=== PATIENT | female | born 1990 | race Caucasian/White ===

== ENCOUNTER 2016-10-09 10:44 | Emergency (ER) | payer OTHER ==
[~2016-10-09] VITALS: Ht 170.2 cm; Wt 86.2 kg
[~2016-10-09 10:44] MED LIST: ALPRAZOLAM ER0.5 MG PO; AMITIZA24 MCG PO; CALCI PO; CHEWABLE MULTI1 EAC1 PO; FLUOXETINE HCL20 MG PO; GOLYTELY SOLU4000 ML PO; IBUPROFEN600 MG PO; IBUPROFEN800 MG PO; KEFLEX500 MG PO; NORCO 5-325 TA1 EACH PO; OMEPRAZOLE40 MG PO; PERCOCET 5-3251 EACH PO; ZOFRAN ODT8 MG PO
[2016-10-09] MEDS ORDERED: XANAX1 MG PO (10:58)
[2016-10-09] MEDS ORDERED: ATIVAN2 MG PO (10:58)
[2016-10-09] MEDS ORDERED: NORCO 5-325 TA1 EACH PO (12:59)
== END 2016-10-09 13:05 | disposition home or self-care (01) ==
LOC: ED 10:44
DX: O03.9 Complete or unspecified spontaneous abortion without complication (principal); O26.90 Pregnancy related conditions, unspecified, unspecified trimester; Z98.890 Other specified postprocedural states
CPT/HCPCS: 76801; 76817; 80048; 81001; 84702; 85025; 96374; 99284; J2405

== ENCOUNTER 2017-07-24 02:09 | Inpatient (IN) | payer OTHER ==
[~2017-07-24] VITALS: Ht 170.2 cm; Wt 108.0 kg
[~2017-07-24 02:09] MED LIST changes: +ATIVAN2 MG PO; +XANAX1 MG PO
[2017-07-24] MEDS ORDERED: PRENATAL VITAM1 EAC6 PO (06:14)
--- NOTE | 2017-07-26 09:16 | PR ---
[facility] [address] [facility] [place], [place] [address] Signed PP Progress Notes Datetime Report Generated by CPN: 07/26/2017 09:15 SUBJECTIVE: [id number] Pain: Within normal limits Nausea/Vomiting: Denies Flatus: Yes Vital Signs: [id number] Vital Signs: Reviewed; Within Normal Limits EXAM: [id number] Cardiovascular: Normal Respiratory: Normal Abdomen/Uterus: Normal Lochia: Normal Vulva/Perineum: Not Done Breasts: Not Done CVA Tenderness: Normal Extremities: Normal Incision: Not Applicable Progress: Normal Exam Comments: Fundus firm U-2 nontender IMPRESSION/PLAN/PROCEDURES: [id number] Impression: Normal progression Plan: Discharge Procedures: None Progress Notes: Doing well, without complaint. Ready to go home. Signing Physician: Radha Pavon MD Copies: ~ *Electronically Signed* 07/26/1715 RADHA PAVON MD PATIENT NAME: KODI REICH PROGRESS NOTE DATE OF : 88 PHYSICIAN: RADHA PAVON MD RPT #: [id number] REPORT IS CONFIDENTIAL AND NOT TO BE RELEASED WITHOUT AUTHORIZATION
== END 2017-07-26 11:00 | disposition home or self-care (01) | DRG 775 ==
LOC: FBCO 02:09 → FBC 08:05
PROVIDERS: ADMIT Obstetrics & Gynecology
PROC: 10E0XZZ Delivery of Products of Conception, External Approach (ICD-10-PCS; principal; 2017-07-24)
PROC: 0UQMXZZ Repair Vulva, External Approach (ICD-10-PCS; 2017-07-24)
PROC: 3E0P7VZ Introduction of Hormone into Female Reproductive, Via Natural or Artificial Opening (ICD-10-PCS; 2017-07-24)
PROC: 00HU33Z Insertion of Infusion Device into Spinal Canal, Percutaneous Approach (ICD-10-PCS; 2017-07-24)
PROC: 3E0R3BZ Introduction of Anesthetic Agent into Spinal Canal, Percutaneous Approach (ICD-10-PCS; 2017-07-24)
DX: O76 Abnormality in fetal heart rate and rhythm complicating labor and delivery (principal); O99.214 Obesity complicating childbirth; E66.9 Obesity, unspecified; O99.844 Bariatric surgery status complicating childbirth; O69.81X0 Labor and delivery complicated by cord around neck, without compression, not applicable or unspecified; O71.82 Other specified trauma to perineum and vulva; O99.344 Other mental disorders complicating childbirth; F41.9 Anxiety disorder, unspecified; Z79.899 Other long term (current) drug therapy; Z3A.37 37 weeks gestation of pregnancy; Z37.0 Single live birth
CPT/HCPCS: 01960; 36415; 59025; 85027; 99213; J2795; J7120

== ENCOUNTER 2020-01-25 10:07 | Emergency (ER) | payer OTHER ==
[~2020-01-25] VITALS: Ht 170.2 cm; Wt 81.6 kg
[~2020-01-25 10:07] MED LIST changes: +PRENATAL VITAM1 EAC6 PO
[2020-01-25] MEDS ORDERED: PANTOPRAZOLE SO40 MG PO (11:51)
[2020-01-25] MEDS ORDERED: ESCITALOPRAM OX20 MG PO (11:51)
[2020-01-25] MEDS ORDERED: BUPROPION XL150 MG PO (11:51)
[2020-01-25] MEDS ORDERED: PREGABALIN150 MG PO (11:51)
== END 2020-01-25 14:25 | disposition home or self-care (01) ==
LOC: ED 10:07
DX: R11.2 Nausea with vomiting, unspecified (principal); R19.7 Diarrhea, unspecified
CPT/HCPCS: 71045; 99284-25

== ENCOUNTER 2021-07-19 05:43 | Day surgery (SDC) | payer OTHER, BC ==
[~2021-07-19] VITALS: Ht 170.2 cm; Wt 81.8 kg
--- NOTE | ~2021-07-19 | OR ---
[facility] [address] [place], [place] [address] Draft DATE OF OPERATION: 07/19/2021 SURGEON: Andrei Medeiros DO PREOPERATIVE DIAGNOSES: 1. Pelvic organ prolapse with apical and posterior compartment involvement. 2. Dysmenorrhea. POSTOPERATIVE DIAGNOSES: 1. Pelvic organ prolapse with apical and posterior compartment involvement. 2. Dysmenorrhea. PROCEDURES PERFORMED: 1. Total laparoscopic hysterectomy. 2. Bilateral salpingectomy. 3. Posterior repair. 4. Cystoscopy. GAS ATTENDANT: Alexis Duckworth MD. ANESTHESIA: General. ESTIMATED BLOOD LOSS: 100 mL. SPECIMEN: The uterus, tubes, and ovaries. DRAINS: Mcbride to gravity. IMPLANTS: None. PACKING: Premarin impregnated Kerlix. FINDINGS: PATIENT NAME: KODI SCHAFFER OPERATIVE REPORT DATE OF : 88 REPORT #: [id number] PHYSICIAN: ANDREI MEDEIROS DO PCP: HESHAM PINEDA PAC REPORT IS CONFIDENTIAL AND NOT TO BE RELEASED WITHOUT AUTHORIZATION [facility] [address] [place] [address] Draft Normal clitoris, urethral meatus, bilateral Grace's, and Bartholin glands. Apical descensus to several cm above the introitus and large bulging rectocele. There is also significant laxity of the perineal body on laparoscopy, normal liver and in the left upper quadrant hardware associated with the patient's lap band. In the pelvis, normal uterus, tubes, and ovaries bilaterally. Hemostasis with much improved apical support at the end of total laparoscopic hysterectomy. On cystoscopy, normal bladder and bilateral ureteral jets. At the conclusion of the posterior repair, the perineorrhaphy well supported posterior, compartment improved perineal support. INDICATIONS: Ms. Schaffer is a pleasant 31-year-old female with a history of dysmenorrhea and pelvic organ prolapse. She describes symptoms of prolapse including splinting and pressure at the end of the day. She also complains of dysmenorrhea. The patient was consented for total laparoscopic hysterectomy with bilateral salpingectomies. We also reviewed posterior repair with perineorrhaphy. Risks, benefits, and alternatives were discussed in detail with the patient. The patient understands and wishes to proceed with the procedure. PROCEDURE IN DETAIL: The patient was taken to the operating room where a time-out was performed to confirm correct patient and correct procedure. General anesthesia was adequately established. The patient was prepped and draped in the dorsal lithotomy position with her feet in Yellofin stirrups. Ancef 2 g were given preoperatively per SCIP protocol and no heparin was indicated. A Mcbride catheter was inserted and a weighted speculum was placed in the vagina. The anterior lip of the cervix was grasped with Allis clamp and the cervix gently dilated using Hegar dilators. A VCare uterine manipulator was placed without difficulty and attention was turned to the abdomen. Just inferior to the abdomen, the skin was infiltrated with 0.25% Marcaine with epinephrine and a 2 cm curvilinear incision was made using an 11 blade. The fascia was grasped with hemostats, elevated, and entered sharply using Metzenbaum scissors. The inferior and superior edges of the fascial incision were tagged with #0 Vicryl sutures. The peritoneum was then entered bluntly. A Bogdan operative port was then placed without difficulty and pneumoperitoneum established. Survey of the abdomen and pelvis was performed demonstrating normal right upper quadrant and postoperative changes consistent with lap band surgery and hardware noted in the left upper quadrant. Attention was then turned to the pelvis. Normal uterus, bilateral tubes and ovaries was identified. Assist ports were placed in the left lower quadrant and right lower quadrant without difficulty under direct visualization. The left fallopian tube was grasped, elevated, and dissected along the mesosalpinx using LigaSure device. The tube was amputated at the cornu and delivered and sent to pathology for further evaluation. The left uteroovarian ligament was fulgurated and divided. The left round ligament was fulgurated and divided. The leaves of the broad ligament were bluntly dissected and the anterior leaf of the broad PATIENT NAME: KODI SCHAFFER OPERATIVE REPORT DATE OF : 88 REPORT #: [id number] PHYSICIAN: ANDREI MEDEIROS DO PCP: HESHAM PINEDA PAC REPORT IS CONFIDENTIAL AND NOT TO BE RELEASED WITHOUT AUTHORIZATION [facility] [address] [place], [place] [address] Draft ligament was dissected down to the vaginal cup anteriorly and the bladder pushed inferiorly beyond the vaginal cup. The posterior leaf of the broad ligament was divided to the uterosacral ligament and across the posterior edge of the vaginal cup. The uterine vasculature was identified, fulgurated and divided with excellent hemostasis. Attention was then turned to the right side where the process was repeated without difficulty. The right fallopian tube was divided only mesosalpinx and delivered. The right uteroovarian ligament was fulgurated, divided, and the right round ligament was fulgurated and divided. The leaves of the broad ligament were divided and the uterine vasculature identified fulgurated and divided with excellent hemostasis. Colpotomy was then performed using Sonicision device following the green edge of the vaginal cup without difficulty. The uterus and cervix were delivered through the vagina and sent to pathology for further evaluation. The vagina was packed with a wet lap inside of surgical glove to reestablish pneumoperitoneum. The pelvis was irrigated and found to be hemostatic. Colpotomy was then repaired using a V-Loc suture with the Endostitch device with careful attention to incorporate the uterosacral ligaments and vaginal epithelium with each bite. Much improved apical support was appreciated. Hemostasis was appreciated and the pelvis was irrigated and suctioned one additional time. Pneumoperitoneum was reduced and operative ports were removed. Infraumbilical fascia was repaired using 0 Vicryl in a running nonlocked manner and the skin was reapproximated using 4-0 Monocryl in a subcuticular stitch with excellent hemostasis cosmesis. Attention was turned to the cystoscopy. The Mcbride catheter was removed and a 70-degree cystoscope was placed in the urethral meatus and advanced under direct visualization in the bladder. Normal bladder dome. Bilateral ureteral jets were appreciated. The bladder was drained and Mcbride catheter reinserted. Attention was turned to the posterior repair. The perineal body was infiltrated with 0.25% Marcaine with epinephrine and inverted triangle was incised using a surgical scalpel across the introitus and down to just above the anus. The rectovaginal space was entered bluntly and the vagina was undermined and incised using Metzenbaum scissors up to the apex. The rectum and perirectal tissue was bluntly and sharply dissected away from the posterior vagina. At the apex, endopelvic fascia was appreciated bilaterally and plicated in the midline using interrupted sutures of 0 Vicryl with excellent reapproximation of endopelvic fascia down to the introitus. Excess vaginal tissue was excised and vaginal incision was repaired using 2-0 Vicryl in a running locked manner to the introitus. The perineorrhaphy was then repaired with interrupted sutures of 0 Vicryl to plicate the perineal body. Skin was then reapproximated using 3-0 Vicryl in a running subcuticular stitch with excellent hemostasis and cosmesis. The vagina was then packed with Premarin impregnated Kerlix and the Mcbride remained in place. The patient was then taken to PACU in good and stable condition. Sponge, needle, and instrument count was correct x2 at the end of the procedure. Dr. Duckworth was present and participated in all portions of the procedure. PATIENT NAME: KODI SCHAFFER OPERATIVE REPORT DATE OF : [birth year] REPORT #: [id number] PHYSICIAN: ANDREI MEDEIROS DO PCP: HESHAM PINEDA PAC REPORT IS CONFIDENTIAL AND NOT TO BE RELEASED WITHOUT AUTHORIZATION [facility] [address] [place] [address] Draft Andrei Medeiros DO JDW/MODL /[id number] Copies: ~ PATIENT NAME: KODI SCHAFFER OPERATIVE REPORT DATE OF : [birth year] REPORT #: [id number] PHYSICIAN: ANDREI MEDEIROS DO PCP: HESHAM PINEDA PAC REPORT IS CONFIDENTIAL AND NOT TO BE RELEASED WITHOUT AUTHORIZATION
[~2021-07-19 05:43] MED LIST changes: +AMBIEN5 MG PO; +BUPROPION XL150 MG PO; +ESCITALOPRAM OX20 MG PO; +MELOXICAM7.5 MG PO; +MODAFINIL200 MG PO; +PANTOPRAZOLE SO40 MG PO; +PEPCID AC10 MG PO; +PREGABALIN150 MG PO; +VITAMIN D21250 MCG PO
--- NOTE | 2021-07-19 08:47 | NUR ---
PT ALERT, ORIENTED AND WAITNG FOR HER COMING FROM WORK TO BE WITH HER. PT ANXIOUS, GAVE COMFORT AND ENCOURAGEMENT. PT REQUESTED PRAYER, WILL FOLLOW.
--- NOTE | 2021-07-19 10:53 | NUR ---
07/19/21 1053 Sheets,Miranda 1041 PT ARRIVED TO PACU ON 10L VIA MASK, RESP SWALLOW AND JAW THURST USED TO MAINTAIN AIRWAY. VSS. 1048 O2 DECREASED TO 6L VIA MASK. RESP CONTINUE TO BE SHALLOW AND PT NONAROUSABLE TO PAINFUL STIMULI. 1050 PT MOVED HER HEAD TO PAINFUL STIMULI AND JAW THRUST NO LONGER NEEDED. RESP EVEN AND UNLABORED.
--- NOTE | 2021-07-19 12:07 | NUR ---
1140: PT ARRIVES TO UNIT FROM PACU VIA STRETCHER. DROWSY ON ARRIVAL AND UNABLE TO HOLD A CONVERSATION AT THIS TIME. VSS, RESP EVEN AND UNLABORED ON RA. REPORTS 8/10 PAIN WHEN ASKED, DISCUSSED PAIN MANAGEMENT AND PT AGREEABLE AT THIS TIME. ICE TO TAILBONE REQUESTED. ABD LAP SITES X3 WITH SMALL AMOUNT OF RED DRAINAGE. PARSONS DRAINS YELLOW URINE AND FLUOROSCENE AT THE BEDSIDE. CRACKERS AND ICE WATER PROVIDED. LIGHTS DIMMED FOR PT COMFORT. NO NEEDS VOICED, CALL LIGHT WITHIN REACH
--- NOTE | 2021-07-19 12:34 | NUR ---
PT REPORTS 8/10 PAIN, PAIN MEDICATION GIVEN PER EMAR. RN HELPS PT TURN TO RIGHT SIDE AND SMALL AMOUNT OF RED DRAINAGE NOTED. ICE PACK TO PERIAREA. PT REPORTS FEELING "BETTER". CALL LIGHT WITHIN REACH.
--- NOTE | 2021-07-19 13:07 | NUR ---
1245: PT RESTING IN BED ON RIGHT SIDE, WAKES WITH ENTRANCE TO ROOM. PT RATES PAIN 7-8/10 IN POSTERIOR PORTION, HAS ICE IN PLACE. PT HAS SMALL AMOUNT OF SKYLA BLOOD TO AREA, DEVONTE CARE PERFOMED AND DEVONTE PAD PLACED. LEMON SEMINOLE SODA PROVIDED AND SOUP ORDERED. PAIN MEDICATION EDUCATION PROVIDED AT THIS TIME. CALL LIGHT WITHIN REACH, ENCOURAGED TO USE WITH ANY NEEDS.
--- NOTE | 2021-07-19 14:20 | NUR ---
[id number]: PT RESTING WITH EYES CLOSED AND LIGHTS DIMMED. CONT PULSE OXIMETER IN PLACE, SATS 100% ON RA. PT STATES PAIN IS "BETTER" AND CLOSES EYES. CURTAIN LEFT OPEN TO VIEW MONITOR, CALL LIGHT WITHIN REACH.
--- NOTE | 2021-07-19 15:13 | NUR ---
1445: PATIENT AWAKENED FOR VS CHECK AND ASSESSMENT. PATIENT STATES PAIN IMPROVED. RATES PAIN 5/10. ABDOMINAL LAP SITES WITH BANDAIDS WNL. PERIPAD IN PLACE WITH MINIMAL RED DRAINAGE. PATIENT REPOSITIONED SELF IN BED. SITTING UP, WILL TRY EATING SOUP. CALL LIGHT WITHIN REACH. ANTICIPATING DR. OWUSU TO COME IN TO EVALUATE PATIENT SHORTLY.
--- NOTE | 2021-07-19 16:17 | NUR ---
[id number]: PARSONS CATHETER EMPTIED OF APPROX 200 MLS YELLOW URINE. 10 MLS CLEAR FLUID REMOVED FROM PARSONS CATHETER AND PARSONS REMOVED. PT TOLERATES WELL. PT WOULD LIKE TO TRY TO VOID. SITS AT SIDE OF BED AND DANGLES LEGS, DENIES FEELING DIZZY OR NAUSEATED. STEADY GAIT TO BATHROOM WITH RN ASSIST. PT UNABLE TO VOID AT THIS TIME, BLADDER SCANNED OF 0 MLS IN BLADDER. PT STATES PAIN IS "TOLERABLE" 5/10. PT TOLERATES SIPS OF WATER AND CRACKERS. CALL LIGHT WITHIN REACH.
--- NOTE | 2021-07-19 17:00 | NUR ---
1640: PT SITTING UPRIGHT, FULLY AWAKE AND ORIENTED. PT DENIES ANY NAUSEA AND TOLERATES PO. PT RATES PAIN 3-4/10 WHEN NOT MOVING AND 5/10 WITH MOVEMENT AND TOLERABLE. PT WILL USE CALL LIGHT WITH URGE TO VOID/ANY NEEDS. THIS RN CALLS DR. OWUSU FOR ASSESSMENT, NO ANSWER. PT STATES "WILL BE HERE IN A FEW MINUTES" AND WILL PLAN TO ORDER DINNER SHORTLY. CALL LIGHT WITHIN REACH.
--- NOTE | 2021-07-19 17:34 | NUR ---
PT UP TO BATHROOM WITH RN ASSIST. DENIES DIZZINESS OR NAUSEA WITH AMBULATION. PT UNABLE TO VOID AT THIS TIME, BLADDER SCANNED OF APPROX [address] OWUSU IN TO SEE PT, WOULD LIKE PT TO TRANSFER TO [facility] UNTIL ABLE TO VOID. VERBALLY ORDERS FOR PT TO RECEIVE LR AT 125 MLS/HR VIA PUMP.
--- NOTE | 2021-07-19 18:11 | NUR ---
PT ARRIVED FROM DAY/SURGERY TO STAY OVER IN MED/SURG UNTIL SHE IS ABLE TO MEET CRITERIA. PT TRANSFERES SELF TO BED WITH STAND BY ASSIST. PT STEADY ON FEET. PT REPORTS 3-4/10 PRESSURE PAIN IN PERINEAL AREA. PT DENIES NEED FOR ADDITIONAL PAIN MEDICATION AT THIS TIME. PT DENIES NAUSEA, EATING CHICKEN STRIPS FOR DINNER. PT REPORTS GOOD APPITITE. LAPAROSCOPIC SITES X3 WITH BAINDAIDS AND STERI STRIPS IN PLACE WNL, WITH SMALL AMOUNT OF RED DRAINAGE. DEVONTE PAD IN PLACE WITH MESH PANTIES SMALL AMOUNT OF RED DRAINAGE NOTED ON DEVONTE PAD. REPORT RECEIVED FROM ORLIN BREWER, WHO STATES PT WAS RECENTLY BLADDER SCANNED FOR 50ML AND THAT DR. OWUSU ORDERED LR AT 125 CONTINIOUS IV FLUIDS. IV FLUIDS INFUSING. NO ADDITIONAL NEEDS AT THIS TIME. CALL LIGHT WITHIN REACH. AT BEDSIDE. PT OREINTED TO ROOM AND CALL LIGHT.
--- NOTE | 2021-07-19 18:17 | NUR ---
1800: PT TRANSFERRED TO MS RM 115 VIA STRETCHER, TOLERATES MOVEMENT WITH NO NAUSEA. PT ABLE TO TRANSFER SELF FROM STRETCHER TO BED WITH NO PROBLEMS. PT TUCKED IN, VS OBTAINED AND LR VIA PUMP PER ORDERS. PT DINNER ARRIVES TO ROOM. VERBAL REPORT GIVEN TO Anna US RN AND CARE TRANSFERRED AT THIS TIME.
--- NOTE | 2021-07-19 19:50 | NUR ---
RECEIVED REPORT FROM DAY SHIFT RN. PATIENT UP AND AMBUALTED X1 LAP IN HALLWAY. PATIENT IS BACK IN BED RESTING. NO FURTHER NEEDS NOTED. CALL LIGHT IN REACH.
--- NOTE | 2021-07-19 20:17 | NUR ---
PATIENT UP TO BR IND. PATIENT ABLE TO VOID 100ML. PATIENT BLADDER SCANNED FOR 25ML. PATIENT RATES PAIN AT A 5/10. PRN PAIN MEDICATION GIVEN PER ORDER. PATIENTS SCHEDULED PM MEDS. GIVEN PER ORDER. PATIENTS IV INFUSING PER ORDER. PATIENT DENIES ANY NAUSEA. X3 LAP SITES, C/D/I. PATIENT DENIES ANY FURTHER NEEDS CALL LIGHT IN REACH. PROVIDED SCRIPT.
--- NOTE | 2021-07-19 20:53 | NUR ---
DR OWUSU TO THE FLOOR. IN ROOM AND REMOVED PACKING WITH LIMA ORDAZ.
--- NOTE | 2021-07-19 20:57 | NUR ---
DR. OWUSU TO PT ROOM, REMOVED VAG PACKING, ALL QUESTIONS ANSWERED FOR PT. PT CONCERNED ABOUT PAIN MEDICATION PHARMACY IS CLOSED, HOME CLARISSE TO BE ORDERED FOR PT. IV DC'D INTACT, VS WNL.
--- NOTE | 2021-07-19 21:40 | NUR ---
WENT OVER DISCHARGE INSTRUCTIONS WITH PT AND . HOME CLAR[facility] [place] SENT WITH PT, IV WAS DC'D AND PULLED EARLIER. ALL PERSONAL SUPPLIES WITH PT . MANAGER COMMUNITY TOOK PT OUT TO AUTO VIA WHEELCHAIR.
--- NOTE | 2021-07-20 17:21 | PATH ---
[facility] [address] [place], [place] [address] Signed SPECIMEN(S): A UTERUS, CERVIX, BILATERAL TUBES SPECIMEN SOURCE: A. UTERUS, CERVIX, BILATERAL TUBES CLINICAL HISTORY: Pre: , female genital prolapse. Post: TLH, BS, cystoscopy, posterior repair. FINAL PATHOLOGIC DIAGNOSIS: Uterus, cervix, and bilateral fallopian tubes, hysterectomy and bilateral salpingectomy: - Cervix: No histopathologic abnormality. - Endometrium: Inactive endometrium. - Myometrium: No histopathologic abnormality. - Fallopian tubes: No histopathologic abnormality. - No evidence of malignancy. NAL:cml:C2NR MICROSCOPIC EXAMINATION: Histologic sections of all submitted blocks are examined by light microscopy. These findings, together with the gross examination, support the pathologic diagnosis. GROSS DESCRIPTION: The specimen, labeled "SF, A," and designated on the requisition "uterus, cervix, bilateral tubes," is received in formalin and consists of a uterus (45 g, 4.3 cm superior to inferior, 5.1 cm cornu to cornu, 2.7 cm anterior to posterior), attached cervix (2.5 cm in length x 2.8 cm in diameter) with pink-grace, wrinkled cervical mucosa and patent, slit-shaped os (1.4 x 0.3 cm), and two detached and undesignated fimbriated fallopian tube segments (3.9 cm in length x 0.8 cm in diameter and 4.4 cm in length and ranging in diameter from 0.4-1.2 cm). One fallopian tube segment is arbitrarily inked blue. Both fallopian tube segments are brown-garce and are sectioned to reveal a grossly unremarkable cut surface. The fimbriae are entirely submitted. The uterine serosa is pink-grace and smooth. The anterior aspect of the cervix is inked blue. The cervix is sectioned to reveal a pink-grace to hemorrhagic endocervix (endocervical canal: 0.7 cm in length x 0.8 cm in diameter). Sectioning of the uterus reveals an endometrial PATIENT NAME: KODI REICH PATHOLOGY DATE OF : 88 REPORT #: [id number] PHYSICIAN: HUGO HILLS PCP: HESHAM PINEDA PAC REPORT IS CONFIDENTIAL AND NOT TO BE RELEASED WITHOUT AUTHORIZATION [facility] [address] [place], [place] [address] Signed cavity (3.9 cm superior to inferior x 2.6 cm cornu to cornu) with hemorrhagic endometrial lining that measures up to 0.1 cm in thickness. The myometrium is pink-grace and trabeculated with no masses or lesions grossly identified. Carton Forming Machine Helper sections are submitted as follows: Cassette Summary: (A1-A2) Fallopian tubes (A3) Cervix (A4) Endomyometrium AC (under the direct supervision of a pathologist) The Gross Description was prepared using a voice recognition system. The report was reviewed for accuracy; however, sound-alike word errors, addition and/or deletions may occur. If there is any question about this report, please contact Client Services. PERFORMING LABORATORY: The technical component was performed by [employer], [address] [place] [id number] (CLIA# [id number]). [facility], [address] [facility] [address] [address] (CLIA# [id number]). Diagnostician: Savanna Gonsales MD Pathologist Electronically Signed 07/20/2021 Copies: ~ PATIENT NAME: KODI REICH PATHOLOGY DATE OF : 88 REPORT #: [id number] PHYSICIAN: HUGO HILLS PCP: HESHAM IPNEDA PAC REPORT IS CONFIDENTIAL AND NOT TO BE RELEASED WITHOUT AUTHORIZATION
== END 2021-07-19 21:40 | disposition home or self-care (01) ==
LOC: DS 05:43 → OPS 05:43 → MS 18:00 → OPS 21:40 → DS 07-21 07:30 → OPS 07-21 07:30
PROVIDERS: ATTEND Obstetrics & Gynecology
PROC: 0JQC0ZZ Repair Pelvic Region Subcutaneous Tissue and Fascia, Open Approach (ICD-10-PCS; 2021-07-19)
PROC: 0WQNXZZ Repair Female Perineum, External Approach (ICD-10-PCS; 2021-07-19)
PROC: 0UT94ZZ Resection of Uterus, Percutaneous Endoscopic Approach (ICD-10-PCS; principal; 2021-07-19 07:30)
PROC: 0UT74ZZ Resection of Bilateral Fallopian Tubes, Percutaneous Endoscopic Approach (ICD-10-PCS; 2021-07-19 07:30)
PROC: 0JQC0ZZ Repair Pelvic Region Subcutaneous Tissue and Fascia, Open Approach (ICD-10-PCS; 2021-07-19 07:30)
DX: N94.6 Dysmenorrhea, unspecified (principal); N81.6 Rectocele; K21.9 Gastro-esophageal reflux disease without esophagitis; M79.7 Fibromyalgia; K58.1 Irritable bowel syndrome with constipation
CPT/HCPCS: A9270; J0131; J0330; J0461; J0690; J1100; J1885; J2250; J2270; J2405; J2704; J2765; J3010; J7121

== ENCOUNTER 2021-12-21 11:22 | Emergency (ER) | payer OTHER, BC ==
[~2021-12-21] VITALS: Ht 170.2 cm; Wt 81.7 kg
--- OUTSIDE RECORDS SUMMARY | 2021-12-21 11:24 | XMS ---
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 EJamie VISIT COUNT (12 MO.) 1 MULU Petersen TOTAL 1 NOTE: Visits indicate total known visits. ED/UCC VISIT TRACKING (12 MO.) 12/21/2021 11:23 MULU Lopez [place] TYPE: Emergency COMPLAINT: - RASH R ARM INPATIENT VISIT TRACKING (12 MO.) No inpatient visits to display in this time frame [email or web address]
[2021-12-21] MEDS ORDERED: CENTANY30 GM TOP (12:22)
[2021-12-21] MEDS ORDERED: DOXYCYCLINE HY100 MG PO (12:22)
== END 2021-12-21 12:33 | disposition home or self-care (01) ==
LOC: ED 11:22
DX: L02.413 Cutaneous abscess of right upper limb (principal); Z79.899 Other long term (current) drug therapy
CPT/HCPCS: 99282

== ENCOUNTER 2024-03-14 09:15 | Emergency (ER) | payer OTHER, BC ==
[~2024-03-14] VITALS: Ht 170.2 cm; Wt 74.8 kg
[~2024-03-14 09:15] MED LIST changes: +CENTANY30 GM TOP; +DOXYCYCLINE HY100 MG PO
[2024-03-14] MEDS ORDERED: REXULTI0.25 MG PO (09:27)
[2024-03-14] MEDS ORDERED: ACETAMINOPHEN-1 EAC1 PO (09:27)
[2024-03-14] MEDS ORDERED: PREGABALIN75 MG PO (09:28)
[2024-03-14] MEDS ORDERED: ESCITALOPRAM OX10 MG PO (09:28)
[2024-03-14] MEDS ORDERED: BUPROPION HCL100 M1 PO (09:28)
[2024-03-14] MEDS ORDERED: FAMOTIDINE20 MG PO (09:28)
[2024-03-14] MEDS ORDERED: HYDROXYZINE HCL10 MG PO (09:29)
[2024-03-14] MEDS ORDERED: SODIUM CHLORIDE 0.9% 1,000 ML IV PRN (09:45)
[2024-03-14] MEDS ORDERED: LACTATED RINGER'S 1,000 ML IV ONE (10:15)
[2024-03-14 10:18] LABS: BASOPHILS 0.3 % (0-2); EOSINOPHILS 0.7 % (0-6); HEMATOCRIT 35.1 % (35.0-50.0); HEMOGLOBIN 12.1 g/dL (12.0-18.0); LYMPHOCYTES 4.5 % (24-44); MCH 30.8 (27-36); MCHC 34.6 g/dl (30-36); MONOCYTES 7.3 % (0-12); NEUTROPHILS 87.2 % (39-80); PLATELET COUNT 170 K/uL (140-440); RBC 3.95 M/ul (4.3-5.7); RDW 12.8 (10.5-15.0)
[2024-03-14 10:24] LABS: ALBUMIN 3.3 g/dL (3.4-5.0); ALBUMIN/GLOBULIN RATIO 0.97 (1.1-2.4); ANION GAP 12.8 (7-21); BUN/CREATININE RATIO 9.18 (6.0-28.6); CREATININE, SERUM 0.98 mg/dL (0.55-1.02); POTASSIUM 3.8 mmol/L (3.5-5.1); PROTEIN, TOTAL 6.7 g/dL (6.4-8.2)
[2024-03-14 12:25] VITALS: BP 98/61
--- NOTE | 2024-03-14 22:14 | EKG ---
[facility] [address] [facility] [place] [address] Signed Normal sinus rhythm Normal ECG No previous ECGs available Confirmed by Morena Dill MD () on 03/14/2024 10:14:19 PM Electronically Signed By: MORENA DILL MD 03/14/24 2214 PATIENT NAME: KODI REICH Electrocardiogram DATE OF : 88 PHYSICIAN: MORENA DILL MD REPORT #: [id number] REPORT IS CONFIDENTIAL AND NOT TO BE RELEASED WITHOUT AUTHORIZATION
== END 2024-03-14 12:25 | disposition home or self-care (01) ==
LOC: ED 09:15
PROVIDERS: Emergency Medicine
DX: R55 Syncope and collapse (principal); Z79.899 Other long term (current) drug therapy
CPT/HCPCS: 36415; 80053; 85025; 93005; 93010; 96360; 96361; 99284-25; J7030; J7121